=== PATIENT | male | born 1940 | race Caucasian/White ===

== ENCOUNTER → 2016-06-22 | Outpatient (CLI) | payer MEDICARE, OTHER ==
[~2016-06-22] MED LIST: LISI10TA2 PO
--- NOTE | 2016-06-22 11:14 | KCIC ---
PROCEDURE Three view right hip dated 06/22/2016. HISTORY Chronic right hip pain. TECHNIQUE AP view pelvis into the right hip obtained. COMPARISON None. FINDINGS Bony alignment is anatomic. No displaced fracture. Hypertrophic change of the bilateral hip joint, right greater than left. Mild degenerative changes pubic symphysis and bilateral SI joint. No acute osseous or articular abnormality. Postsurgical changes of the lower lumbar spine. IMPRESSION No acute radiographic abnormality. Degenerative changes as described above. Electronically signed by: Aris Cabrera (Jun 22, 2016 11:12:58)
== END | disposition home or self-care (01) ==
LOC: KCIC 10:04
PROVIDERS: ATTEND Family Medicine
DX: M25.551 Pain in right hip (principal)
CPT/HCPCS: 73502

== ENCOUNTER 2016-09-02 15:46 | Emergency (ER) | payer MEDICARE, OTHER ==
[~2016-09-02] VITALS: Ht 177.8 cm; Wt 104.3 kg
[2016-09-02] MEDS ORDERED: MORPHINE SULFATE 10 MG/ML VIAL. IM ONE ×2 (16:15→17:00)
[2016-09-02] MEDS ORDERED: BACITRACIN TOPICAL OINT 14GM TUBE. TP ONE (16:15)
[2016-09-02] MEDS ORDERED: DIPHTH,PERTUSS(ACELL),TET TOX 0.5 ML DISP.SYRIN. VAX IM ONE (16:15)
[2016-09-02] MEDS ORDERED: silver sulfADIAZINE 1% CREAM 25GM TUBE. TP ONE (17:00)
[2016-09-02] MEDS ORDERED: SILV20CR4 TP (17:07)
[2016-09-02] MEDS ORDERED: HYDR-971 PO (17:07)
[2016-09-02] MEDS ORDERED: BACI28.43 TP (17:07)
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
[2016-09-02 17:30] VITALS: BP 152/90
== END 2016-09-02 17:47 | disposition home or self-care (01) ==
LOC: ER 15:46
DX: T25.292A Burn of second degree of multiple sites of left ankle and foot, initial encounter (principal); T23.102A Burn of first degree of left hand, unspecified site, initial encounter; T21.12XA Burn of first degree of abdominal wall, initial encounter; T31.0 Burns involving less than 10% of body surface; G89.29 Other chronic pain; F32.9 Major depressive disorder, single episode, unspecified; E78.00 Pure hypercholesterolemia, unspecified; Z96.651 Presence of right artificial knee joint; X11.8XXA Contact with other hot tap-water, initial encounter; Y93.89 Activity, other specified; Y92.89 Other specified places as the place of occurrence of the external cause; Y99.8 Other external cause status
CPT/HCPCS: 16020; 90471; 90715; 96372; 99284; J2270

== ENCOUNTER → 2016-09-20 | Outpatient (CLI) | payer MEDICARE, OTHER ==
[2016-09-02 17:30] VITALS: BP 152/90
[~2016-09-20] MED LIST changes: +BACI28.43 TP; +HYDR-971 PO; +SILV20CR4 TP
== END | disposition home or self-care (01) ==
LOC: PMGWOUND 11:44
PROVIDERS: ATTEND Emergency Medicine Undersea and Hyperbaric Medicine
DX: T25.322A Burn of third degree of left foot, initial encounter (principal); S91.302A Unspecified open wound, left foot, initial encounter; T31.10 Burns involving 10-19% of body surface with 0% to 9% third degree burns; E78.5 Hyperlipidemia, unspecified; E78.00 Pure hypercholesterolemia, unspecified; F32.9 Major depressive disorder, single episode, unspecified; Z87.891 Personal history of nicotine dependence; Z72.89 Other problems related to lifestyle; Z96.651 Presence of right artificial knee joint; X08.8XXA Exposure to other specified smoke, fire and flames, initial encounter; Y93.89 Activity, other specified; Y92.89 Other specified places as the place of occurrence of the external cause; Y99.8 Other external cause status
CPT/HCPCS: 97597; 97598

== ENCOUNTER → 2016-09-27 | Outpatient (CLI) | payer MEDICARE, OTHER ==
[2016-09-02 17:30] VITALS: BP 152/90
== END | disposition home or self-care (01) ==
LOC: PMGWOUND 09:47
PROVIDERS: ATTEND Emergency Medicine Undersea and Hyperbaric Medicine
DX: T25.322D Burn of third degree of left foot, subsequent encounter (principal); T31.10 Burns involving 10-19% of body surface with 0% to 9% third degree burns; E78.5 Hyperlipidemia, unspecified; F32.9 Major depressive disorder, single episode, unspecified; E78.00 Pure hypercholesterolemia, unspecified; Z72.89 Other problems related to lifestyle; Z96.651 Presence of right artificial knee joint; Z87.891 Personal history of nicotine dependence; X08.8XXD Exposure to other specified smoke, fire and flames, subsequent encounter
CPT/HCPCS: 99214

== ENCOUNTER → 2017-10-17 | Outpatient (CLI) | payer BC | END | disposition home or self-care (01) | LOC: KCIC CT 08:45 | DX: I70.0 Atherosclerosis of aorta (principal); E78.5 Hyperlipidemia, unspecified; E78.00 Pure hypercholesterolemia, unspecified; R91.8 Other nonspecific abnormal finding of lung field | CPT/HCPCS: 71250 ==

== ENCOUNTER → 2018-04-04 | Outpatient (CLI) | payer BC ==
[~2018-04-04] MED LIST changes: +SILV20CR14 TP; -SILV20CR4 TP
--- NOTE | 2018-04-04 09:49 | KCIC ---
MRI Lumbar Spine without contrast History: Chronic low back pain, radiculopathy, muscle weakness, left side pain for 6 months, previous surgeries Technique: Multiplanar, multi sequential noncontrast MR imaging was performed of the lumbar spine. Contrast: None Comparison: June 01, 2015 Findings: There again has been posterolateral fusion L5-S1 at which there are bilateral pedicle screws. Exam does not accurately evaluate integrity of hardware. There is grade 1 anterior spondylolisthesis L5-S1 as seen previously. There is again negligible posterior subluxation L1 relative to L2 and L2 relative to L3. There is new edema of the left inferior L1 endplate adjacent to likely small Schmorl's node, also mild edema about the inferior, anterior left L2 endplate increased in interval. There is again hemangioma of the L3 vertebral body. There has been progression of moderate degenerative disc disease at L2-3, mild degenerative disc disease L5-S1, L3-4, and L1-2 as seen previously. Conus terminates at T12. There is T2 hyperintense lesion of the visualized right kidney as seen previously about 3 cm, statistically more likely cyst. L1-L2: There is minimal disc osteophyte complex and bulge slightly more prominent in interval, spinal canal overall adequate. The neural foramina are adequate. There is mild facet degenerative change. L2-L3: There is more prominent disc osteophyte complex and bulge. There is again facet degenerative change and buckling of the ligamentum flavum. There is increased indentation upon the ventral thecal sac although spinal canal overall adequate. There is again minimal narrowing of the right neural foramen, left neural foramen not significantly narrowed. L3-L4: There is again facet degenerative change and buckling of the ligamentum flavum. Spinal canal is adequate. Neural foramina are overall adequate. L4-L5: Spinal canal and neural foramina are adequate. L5-S1: There again has been posterior decompression. Spinal canal is adequate. Right neural foramen is adequate. There is increased mild narrowing of the inferior left neural foramen by disc osteophyte complex with contact undersurface exiting left L5 nerve root. Impression: 1. Comparing with the 2014 exam, there has been progression of degenerative disc disease at L2-3, other multilevel mild degenerative disc disease as seen previously. There is new inferior L1 and anterior L2 endplate edema likely reactive/degenerative in etiology. There is no new significant lumbar spinal stenosis, more prominent disc osteophyte complex and bulge at L2-3 without significant neural impingement. There is increased mild narrowing of the left L5-S1 neural foramen. There again has been posterolateral fusion and posterior decompression at L5-S1. 2. There is again likely cyst of the right kidney. Electronically signed by: Randy Walsh MD (04/04/2018 9:46 AM) [facility]
== END | disposition home or self-care (01) ==
LOC: KCIC MRI 08:34
PROVIDERS: ATTEND Family Medicine
DX: M51.36 Other intervertebral disc degeneration, lumbar region (principal); M48.07 Spinal stenosis, lumbosacral region; M43.17 Spondylolisthesis, lumbosacral region; R60.0 Localized edema
CPT/HCPCS: 72148

== ENCOUNTER → 2018-11-05 | Outpatient (CLI) | payer BC ==
[~2018-11-05] MED LIST changes: +HYDR-3164 PO; -HYDR-971 PO
--- NOTE | 2018-11-05 16:01 | KCIC ---
EXAM: LOWER EXTREMITY ARTERIAL DOPPLER SONOGRAM WITH ANKLE-BRACHIAL INDICES (ADONIS). HISTORY: Bilateral lower extremity claudication TECHNIQUE: Grayscale and Doppler sonographic evaluation of the lower extremities was performed and pressure readings were assessed. FINDINGS: There are biphasic waveforms within the dorsalis pedis and distal posterior tibial arteries bilaterally. Right brachial pressure: 144 mmHg Left brachial pressure: 141 mmHg Right ankle pressure: 166 mmHg Right ankle ADONIS: 1.15 Left ankle pressure: 155 mmHg Left ankle ADONIS: 1.07 IMPRESSION: 1. Normal bilateral ankle-brachial indices. 2. Biphasic waveforms within the dorsalis pedis and distal posterior tibial arteries bilaterally are consistent with mildly flow-limiting stenosis more proximally. Electronically signed by: Cira Martino MD (11/05/2018 3:58 PM) [facility]
== END | disposition home or self-care (01) ==
LOC: KCIC US 09:44
PROVIDERS: ATTEND Family Medicine
DX: I73.9 Peripheral vascular disease, unspecified (principal)
CPT/HCPCS: 93922

== ENCOUNTER → 2019-01-21 | Outpatient (CLI) | payer BC ==
--- NOTE | 2019-01-21 11:11 | KCIC ---
Indication:Right shoulder pain. No known injury. TECHNIQUE: 3 views of the right shoulder COMPARISON:None FINDINGS: No acute fracture or dislocation. 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 Visualized right lung is clear. IMPRESSION: As above. Electronically signed by: Francisco Kuo DO (01/21/2019 11:08 AM) [facility]
== END | disposition home or self-care (01) ==
LOC: KCIC 10:29
PROVIDERS: ATTEND Family Medicine
DX: M19.011 Primary osteoarthritis, right shoulder (principal)
CPT/HCPCS: 73030

== ENCOUNTER → 2019-03-26 | Outpatient (CLI) | payer BC ==
--- NOTE | 2019-03-26 13:11 | KCIC ---
MR of the right shoulder HISTORY: Right shoulder pain, possible rotator cuff tear. Pain for 6 months. TECHNIQUE: Routine multiplanar sequences are obtained. FINDINGS: The acromioclavicular joint is degenerative with small undersurface osteophytes. Rotator cuff tendinosis. Deep linear articular side tear of the posterior supraspinatus tendon measures about 2 cm AP diameter and at least 90% deep. No definite complete through and through full-thickness rupture although the overlying bursal tissue layer is extremely thin. Trace fluid in the subdeltoid bursa. Partial tear of the upper subscapularis tendon. Mild articular side tearing through the infraspinatus tendon. No significant glenohumeral joint effusion. Glenohumeral joint DJD. Tear of the posteroinferior labrum. Small para labral cyst within the anterior labrum. Superior labrum demonstrates mild distortion and heterogeneous signal compatible with degenerative tear. Biceps tendinosis with partial tearing. Mild medial subluxation of the tendon at the upper bicipital groove. No acute fracture. No aggressive bone destruction. IMPRESSION: 1. Very deep articular surface tear of the posterior supraspinatus tendon. Partial tearing of subscapularis and infraspinatus tendons. 2. Posteroinferior labral tear. 3. Degenerative tear of the superior labrum. 4. Small anterior para labral cyst raising question of tear. 5. Biceps tendinosis with partial tearing and slight medial subluxation. Electronically signed by: Aris Carrion MD (03/26/2019 1:08 PM) [id number]
== END | disposition home or self-care (01) ==
LOC: KCIC MRI 08:50
PROVIDERS: ATTEND Orthopaedic Surgery
DX: S43.081A Other subluxation of right shoulder joint, initial encounter (principal); M25.711 Osteophyte, right shoulder; M75.101 Unspecified rotator cuff tear or rupture of right shoulder, not specified as traumatic; M85.611 Other cyst of bone, right shoulder; M19.011 Primary osteoarthritis, right shoulder; X58.XXXA Exposure to other specified factors, initial encounter; Y93.89 Activity, other specified; Y92.89 Other specified places as the place of occurrence of the external cause; Y99.8 Other external cause status
CPT/HCPCS: 73221